=== PATIENT | male | born 1995 | race Caucasian/White ===

== ENCOUNTER 2018-09-02 12:44 | Emergency (ER) | payer SELFPAY ==
[2018-09-02 12:45] VITALS: BP 122/90; BP 122/99; PULSE 107; PULSE 111; RESP 17; RESP 19; TEMP 36.7; O2SAT 100; O2SAT 98; BMI 28.6
--- NOTE | 2018-09-02 12:56 | ED.DCSUM_ITS ---
- ER Visit Summary Date of Service: 09/02/18 Chief Complaint: Seizure History of Present Illness: The patient is a 23 M presents to the emergency department after a seizure. The patient has a history of seizure disorder. He is supposed to be on Depakote. He is been noncompliant with medication for over a year. Today, he had a witnessed seizure. He was postictal. He states now, he feels like he is back to baseline. He denies any fevers or chills. He denies any head injury. He is otherwise been in his normal state of health. Physical Examination: Vital signs reviewed General: Well-nourished, well-developed Head: Normocephalic, atraumatic Eyes: Pupils equal and reactive, extraocular muscles intact Neck, supple, no lymphadenopathy Heart: Regular rate and rhythm Respiratory: No distress, clear bilaterally Abdomen: Soft, nontender, nondistended, no peritoneal signs Back: Nontender Extremities: Nontender, no edema, no cords Skin: Normal color no rash Neuro: Alert and oriented, no focal or lateralizing deficits Test Results: [] Emergency Department Course and Treatment: The patient presents after witnessed seizure. He has not been compliant with Depakote therapy. On arrival, he is awake and alert. He is not encephalopathic. Is not meningitic. IV was established. The patient was loaded with Depakote at 17 mg/kg. He was observed. He had no further seizure activity. The patient's insurance has lapsed. I did have social work see him to get him a referral to get back on his Medicaid. I am going to refill his Depakote. At this time, I do feel that he safe for outpatient therapy. Treatment Plan: [] Disposition: Discharge Impression: 1. Breakthrough seizure This note was generated with [employer] dictation software. It may contain incorrect words, spelling, and punctuation that were not noted in review of the chart prior to signing ED Disposition - Plan for ED Patient: Instructions: ED Seizure Recurrent Prescriptions: Divalproex Sodium [Depakote] 500 mg PO BID #60 tablet. Referrals: Yamilet Manriquez [NON-STAFF] -
--- NOTE | 2018-09-02 13:05 | PCA ---
PRINTED OLD EKG
[2018-09-02 13:20] LABS: Absolute Lymphocyte Count 2.16 X10^3/ul (0.83-4.51); Absolute Neutrophil Count 5.7 X10^3/uL (2.0-7.7); Basophil# 0.04 X10^3/uL; Basophil% 0.5 % (0-1); Eosinophil# 0.19 X10^3/uL; Eosinophils% 2.2 % (0-5); Hemoglobin 13.9 g/dl (13.0-16.5); Lymphocyte # 2.16 X10^3/ul (4.0); Lymphocyte % 24.5 % (19-41); Mean Corp Hgb Conc 33.9 g/gl (32-36); Mean Corpuscular Hgb 29.4 pg (27.0-32.0); Mean Corpuscular Volume 86.7 fL (80-94); Mean Platelet Vol. 8.2 fl (6.2-12.0); Monocyte# 0.65 X10^3/uL; Monocyte% 7.4 % (0-10); Neutrophil # 5.73 X10^3/uL (2.7-7.7); Neutrophil % 64.7 % (47-70); Platelet Count 297 K/mm3 (150-450); RBC Distribution Width CV 13.4 % (11.6-14.6); RBC Distribution Width SD 42.9 fl (35.1-43.9); Red Blood Count 4.73 M/mm3 (4.6-6.2); White Blood Count 8.8 K/mm3 (4.4-11.0)
[2018-09-02 13:21] LABS: POSITIVE COUNT NO; POSITIVE DIFFERENTIAL NO; POSITIVE MORPHOLOGY NO
[2018-09-02 13:26] LABS: ALB/GLOB Ratio 1.1 RATIO (0.9-2.4); AST(SGOT) 31 U/L (15-37); Alanine Aminotransfer ALT/SGPT 44 U/L (16-61); Albumin, Serum 3.9 g/dL (3.2-5.0); Alkaline Phosphatase 98 U/L (45-117); Anion Gap 7 (5-15); BUN 13 mg/dL (7-18); BUN/Creat Ratio 11.2 RATIO (10-20); Calcium,Total 8.8 mg/dL (8.5-10.1); Chloride 107 mmol/L (98-107); Creatinine, Serum 1.16 mg/dL (0.70-1.30); EST Glomerular Filtration Rate 81 mL/min (>60); Est Glom Filt Rate - Afr Amer 98 mL/min (>60); Estimated Creatinine Clearance 100.51 ml/min; Globulin 3.7 g/dL (2.2-4.2); Glucose 82 mg/dL (74-106); Potassium 4.8 mmol/L (3.5-5.1); Protein, Total 7.6 g/dL (6.4-8.2); Sodium Level 138 mmol/L (136-145)
--- NOTE | 2018-09-02 14:20 | CM.ED ---
SOCIAL WORK NOTE REFERRED BY DR. RODAS FOR ASSISTANCE WITH PRESCRIPTIONS. PATIENT IS SELF PAY. MET WITH PATIENT AND PATIENT'S MOTHER AT BEDSIDE. INTRODUCED ROLE AND REASON FOR REFERRAL. DISCUSSED MEDICAID PROCESS AND PROVIDED PATIENT WITH CONTACT INFORMATION FOR MEDICAID SHARED SERVICES. EDUCATION PROVIDED ON PEOPLE TO PEOPLE FOR RX ASSISTANCE. PATIENT GIVEN CONTACT NUMBER AND ADRESS FOR PEOPLE TO PEOPLE. PATIENT DENIES ANY FURTHER ISSUES OR NEEDS. UPDATED DR. RODAS ON THE ABOVE. MARCIE LORENZ, NITRO MAN, CENTRIFUGE SEPARATOR TENDER.
[2018-09-02 14:47] VITALS: BP 126/76; PULSE 91; RESP 17; O2SAT 96
[2018-09-02] MEDS: Ibuprofen 600 MG Tablet PO (14:55)
[2018-09-02 14:58] VITALS: BP 129/68; PULSE 87; RESP 20; O2SAT 99
== END 2018-09-02 15:19 | disposition home or self-care (01) ==
PROVIDERS: Emergency Provider Emergency Medicine
DX: R56.9 Unspecified convulsions (principal); Z91.14 Patient's other noncompliance with medication regimen
CPT/HCPCS: 80053; 85025; 96365; 99285; J7030

== ENCOUNTER 2019-01-25 14:12 | Emergency (ER) | payer SELFPAY ==
[2019-01-25 14:14] VITALS: BP 116/75; PULSE 117; RESP 16; TEMP 36.8; O2SAT 96; BMI 29.1
--- NOTE | 2019-01-25 14:28 | CT_ITS ---
STUDY: CT BRAIN WITHOUT CONTRAST REASON FOR EXAM: Male, 23 years old. Head injury due to a seizure. RADIATION DOSAGE (If Supplied By Facility): CTDIvol = ( 44.99 ) mGy, DLP = ( 779.24 ) mGycm TECHNIQUE: Transaxial CT imaging of the brain was performed without administration of intravenous contrast material. Individualized dose optimization techniques were used for this CT. COMPARISON: Comparison is made with prior study dated April 22, 2016. FINDINGS: Normal soft tissue structures. Normal calvarium. Normal size ventricles and extra-axial spaces for the patient's age. Normal white matter tracts of the cerebral hemispheres. Normal basal ganglia and thalami. Normal brainstem. Normal cerebellum. There is no intracranial hemorrhage. There are no findings of an acute ischemic infarction. Normal visualized paranasal sinuses. CT/Brain/Head without Contrast IMPRESSION: Normal unenhanced CT scan of the brain. Electronically Signed: Jose Carlos Melo, at 15:24 EDT , Service support ,
--- NOTE | 2019-01-25 14:28 | CT_ITS ---
STUDY: CT CERVICAL SPINE WITHOUT CONTRAST REASON FOR EXAM: Male, 23 years old. Injury to the back of the skull due to seizure. RADIATION DOSAGE (If Supplied By Facility): CTDIvol = ( 23.87 ) mGy, DLP = ( 451.51 ) mGycm TECHNIQUE: High resolution transaxial imaging was performed without contrast material. Sagittal and coronal images were reconstructed. Individualized dose optimization techniques were used for this CT. COMPARISON: None FINDINGS: Small benign-appearing cervical lymph nodes. Normal craniovertebral junction. Normal anterior atlantoaxial articulation. Normal odontoid process. There is straightening of the normal cervical lordosis. Normal vertebral bodies and posterior osseous elements. C2-3: Normal endplates. Normal disc height and morphology. Normal central canal and intervertebral neuroforamina. C3-4: Normal endplates. Normal disc height and morphology. Normal central canal and intervertebral neuroforamina. C4-5: Normal endplates. Normal disc height and morphology. Normal central canal and intervertebral neuroforamina. C5-6: Normal endplates. Normal disc height and morphology. Normal central canal and intervertebral neuroforamina. C6-7: Normal endplates. Normal disc height and morphology. Normal central canal and intervertebral neuroforamina. C7-T1: Normal endplates. Normal disc height and morphology. Normal central canal and intervertebral neuroforamina. Normal visualized soft tissue structures. CT/Spine Cervical without Contras IMPRESSION: Normal unenhanced CT examination of the cervical spine. Electronically Signed: Jose Carlos Melo, at 15:23 EDT , Service support ,
--- NOTE | 2019-01-25 15:17 | ED.VISSUMM ---
- ER Visit Summary Date of Service: 01/25/19 Chief Complaint: Seizure History of Present Illness: The patient is a 23 M who presents the emergency department after reported seizure. Patient has an established history of noncompliance patient states he has a known history of epilepsy and is supposed to be taking Depakote. However he states due to insurance reasons he cannot afford it has not been taking it. He cannot recall the last time he had a seizure. However the last time he was brought to the emergency department here for seizure was in August of this year. At that time case management was contacted to help him get set up with Medicaid. Does not follow through with the necessary work to obtain this insurance. Patient notes pain in the left side of his neck following the reported fall during the seizure. He denies any loss of bowel or bladder control. Denies any tongue injury. He states he feels somewhat out of it but is improving. He does not remember the incident at work but does remember being at work. The next thing he remembers is waking up in the ambulance Physical Examination: Afebrile vital signs are stable Gen: Well-nourished well-developed Head: Normocephalic atraumatic Eyes: Perrl EOMI ENT: TMs clear no rhinorrhea moist mucous membranes Neck: Supple no lymphadenopathy no JVD she has tenderness palpation over the left side of his neck and in the midline. CVS: Regular rate rhythm no murmurs normal S1-S2 Respiratory: No distress clear to auscultation bilaterally chest nontender Abdomen: Soft nontender nondistended normal bowel sounds no masses Back: Nontender Extremity: Nontender no edema Skin: Normal color no rash Neuro: alert orientated ?3 CN II-XII intact normal strength sensation reflexes gait cerebellar Psych: Normal affect normal mood Test Results: CT of the brain and cervical spine were obtained. Emergency Department Course and Treatment: She was loaded with 17 mix per cake of Depacon. I will wrote for him to have his Depakote for the next 30 days. He was encouraged to follow-up with neurology. Impression: 1. Epileptic seizure This note was generated with Robert Applebaum MD dictation software. It may contain incorrect words, spelling, and punctuation that were not noted in review of the chart prior to signing ED Disposition - Plan for ED Patient: Disposition: Home or Assisted Living Instructions: SEIZURE, Recurrent [Adult] Prescriptions: Divalproex Sodium [Depakote] 500 mg PO BID #60 tablet.dr Prescription Printed Referrals: Desean Mcneal MD [STAFF PHYSICIAN] - (Also arrange follow-up with his neurologist)
--- NOTE | 2019-01-25 16:15 | CM.ED ---
Social Work Consult: Resources Informant: Dr. Squires Chief Complaint: Unable to obtain medications for seizures. Living situation: lives with fatherAndry Employment/Education: Works for [employer]. Graduated with a high school diploma. Reporting to be unable to read or write without assistance. Stating to have had an IEP in high school. Transportation: Does not drive. Depends on neighbor and cab services for transportation. Supports/Resources: Stating to have friends for support. Does not identify father as a support person stating he works. Abuse Issues: Patient denies any abuse history Substance Abuse: Patient denies. Mental Health: Patient denies any mental health treatment or history of. Risk to Self/Others: Denies SI or HI. Assessment: Met with patient in room. This social insurance administrator introduced self as well as social insurance administrator role. Patient agreeable to meeting with this social insurance administrator. This social insurance administrator inquiring about insurance for patient. Patient stating I think I have it set up through work. Patient unable to provide insurance card. Patient stating that the insurance payment is taken out of patient paycheck. Patient unsure what insurance it might be. Registration did attempt to contact patient employer and is unable to confirm patient insurance. This social insurance administrator inquiring about medicaid for patient in the past. Patient stating to believe that patient had medicaid at one point but not sure. Patient declining for this social insurance administrator to contact patient father/friend to see if patient would have support for filling out paperwork and establishing insurance due to patient being unable to read and write on own. Patient able to make own decisions as determined by medical team. Patient denies having any legal guardian. Patient aware of the time of year, place and person. Patient unsure of the month due to I don't follow that much. Patient states no transportation concerns. Patient stating to be concerned that patient will have a job as patient was told if patient would have another seizure that work that patient would be terminated and placed on disability. Patient does not respond emotionally to this comment and shrugs shoulders. Patient continued to decline this social insurance administrator contacting patient family/friends for possible support. Active listening provided. Encouraged patient to work with patient family or friends on establishing patient insurance. Patient voicing skip. Kathrine Troncoso MSW, MALIKA
[2019-01-25 17:27] VITALS: BP 108/77; PULSE 62; RESP 15; O2SAT 98
== END 2019-01-25 17:29 | disposition home or self-care (01) ==
PROVIDERS: Emergency Provider Emergency Medicine
DX: G40.909 Epilepsy, unspecified, not intractable, without status epilepticus (principal); Z91.19 Patient's noncompliance with other medical treatment and regimen; S16.1XXA Strain of muscle, fascia and tendon at neck level, initial encounter; W19.XXXA Unspecified fall, initial encounter; Y93.9 Activity, unspecified; Y92.9 Unspecified place or not applicable; Y99.9 Unspecified external cause status; Z79.899 Other long term (current) drug therapy
CPT/HCPCS: 70450; 72125; 96365; 96366; 99285; J7050; A4216

== ENCOUNTER 2021-08-09 08:55 | Emergency (ER) | payer OTHER, SELFPAY ==
[2021-08-09 08:58] VITALS: BP 128/83; PULSE 102; RESP 16; TEMP 36.2; O2SAT 99; BMI 29.5
[2021-08-09 09:57] LABS: Absolute Lymphocyte Count 1.44 X10^3/uL (0.83-4.51); Absolute Neutrophil Count 14.7 X10^3/uL (2.0-7.7); Basophil# 0.08 X10^3/uL; Basophil% 0.5 % (0-1); Eosinophil# 0.05 X10^3/uL; Eosinophils% 0.3 % (0-5); Hematocrit 40.5 % (40-54); Hemoglobin 13.9 g/dL (13.0-16.5); Lymphocyte # 1.44 X10^3/ul (0.83-4.51); Lymphocyte % 8.4 % (19-41); Mean Corp Hgb Conc 34.3 g/dL (32-36); Mean Corpuscular Hgb 29.6 pg (27.0-32.0); Mean Corpuscular Volume 86.2 fL (80-94); Mean Platelet Vol. 8.3 fl (6.2-12.0); Monocyte# 0.69 X10^3/uL; NRBC Flagged by Analyzer 0 % (0-5); Neutrophil % 85.6 % (47-70); Platelet Count 425 K/mm3 (150-450); RBC Distribution Width CV 13.2 % (11.6-14.6); RBC Distribution Width SD 41.2 fl (35.1-43.9); White Blood Count 17.2 K/mm3 (4.4-11.0)
[2021-08-09 10:27] LABS: Anion Gap 10 (5-15); BUN 14 mg/dL (7-18); Calcium,Total 9.3 mg/dL (8.5-10.1); Chloride 103 mmol/L (98-107); Creatinine, Serum 1.17 mg/dL (0.70-1.30); EST Glomerular Filtration Rate 79 mL/min (>60); Est Glom Filt Rate - Afr Amer 95 mL/min (>60); Glucose 117 mg/dL (74-106); Potassium 4.9 mmol/L (3.5-5.1); Sodium Level 134 mmol/L (136-145)
[2021-08-09] MEDS: levETIRAcetam 500 MG Tablet PO (11:00)
[2021-08-09] MEDS: Acetaminophen 500 MG Tablet PO (11:00)
[2021-08-09 11:01] VITALS: BP 126/85; PULSE 95; RESP 20; O2SAT 100
--- NOTE | 2021-08-09 12:00 | EDS_ITS ---
HPI History of Present Illness Chief Complaint: Seizure Narrative Narrative: 26-year-old male with history of seizure disorder. He states he takes Keppra. He supposed to take 500 twice daily but does not always. He states that if he takes 2 doses he typically becomes tired. He waits on the second dose until after he gets home from work. Today at work he had a breakthrough seizure. He did not bite his tongue. He did not lose bladder or bowel. Patient had no head trauma. Bystanders helped him he decided aside so he did not vomit or choke. Patient back to baseline currently. He has a very mild headache. No visual complaints. PFSH PFSH Home Medications levetiracetam 500 mg PO BID #60 tablet 04/22/16 [Rx Last Taken Unknown] Allergy/AdvReac Type Severity Reaction Status Date / Time Penicillins [PCN] Allergy Unknown Verified 08/09/21 08:56 Social History Smoking Status: Never smoker ROS ROS ED Constitutional Constitutional ED: Denies chills, fever(s) or sweats Eyes Eyes: Denies blurry vision or change in vision ENT ENT ED: Denies ear pain or sore throat Cardiovascular Cardiovascular: Denies chest pain, palpitations or racing heartbeat Respiratory/Chest Respiratory/Chest: Denies cough, dyspnea or sputum Gastrointestinal Gastrointestinal: Denies abdominal pain, constipation, diarrhea, nausea or vomiting Genitourinary Genitourinary ED: Denies dysuria, hematuria or urinary frequency Musculoskeletal Musculoskeletal: Denies arthralgias, myalgias or neck pain Integumentary Denies abscess, Abrasions or rash Neurologic Neurologic: Reports headache(s) and other Details: Breakthrough seizure Psychiatric Psychiatric: Denies anxiety, depression, suicidal ideation or suicidal thoughts Endocrine Endocrinology: Denies polydipsia or polyuria EXAM Physical Exam Const Vital Signs: 08/09/21 08:58 08/09/21 11:01 Temperature 97.2 F L Temperature Source Oral Pulse Rate 102 H 95 Respiratory Rate 16 20 H Blood Pressure 128/83 H 126/85 H Blood Pressure Mean 98 98 Pulse Ox 99 100 Oxygen Delivery Method Room Air Room Air Positive well nourished General Appearance ED: NAD; Negative for pallor HEENT Reports normocephalic, head/scalp atraumatic and moist mucous membranes Eyes PERRL and EOMs intact bilaterally Neck no lymphadenopathy and supple Chest Wall inspection of chest normal and palpation of chest normal Resp normal respiratory effort and clear to auscultation bilaterally Auscultation: Negative for rales, rhonchi or wheezes Cardio regular rate and regular rhythm GI normal to inspection, nondistended, normoactive bowel sounds and non-distended Auscultation: normoactive bowel sounds Palpation: soft Narrative: Deferred Extremity normal to inspection General Extremety ED: Yes edema and tenderness General Extremity: edema Neuro oriented x3 and CN's II-XII intact bilaterally Sensorium / Orientation: alert Motor Exam: strength 5/5 throughout Psych mental status grossly normal Attitude: No agitated Skin no rashes or lesions noted and no wounds General Skin Exam: Negative for jaundice or pallor MDM MDM MDM Narrative Medical decision making narrative: Patient presenting with breakthrough seizure. He is alert and oriented. He states he was initially postictal but feels well now. Is a mild headache. He is given Tylenol for this. I obtained lab work and patient has a leukocytosis of 17.2 which is likely due to his seizure. Hemoglobin and hematocrit are normal. Renal function and electrolytes are also within normal limits. Patient was given a oral Keppra here. Has had no breakthrough seizures. He is to monitor for a couple of hours. He request a work note for today and tomorrow. He has a specialist that he sees is 4 hours away. He states he typically calls and has televisits. In the summer he gets his prescriptions. Patient will call today. Impression: 1. Seizure Lab Data Attestation: I reviewed the patient's lab results. Labs: Laboratory Results - last 24 hr 08/09/21 08/09/21 09:50 09:50 WBC 17.2 H RBC 4.70 Hgb 13.9 Hct 40.5 MCV 86.2 MCH 29.6 MCHC 34.3 RDW Std Deviation 41.2 RDW Coeff of Jose 13.2 Plt Count 425 MPV 8.3 Immature Gran % (Auto) 1.200 H Neut % (Auto) 85.6 H Lymph % (Auto) 8.4 L [place] % (Auto) 4.0 Eos % (Auto) 0.3 Baso % (Auto) 0.5 Absolute Neuts (auto) 14.7 H Absolute Lymphs (auto) 1.44 Nucleated RBC % 0 Sodium 134 L Potassium 4.9 Chloride 103 Carbon Dioxide 21.0 Anion Gap 10 BUN 14 Creatinine 1.17 Estim Creat Clear Calc 94.00 Est GFR (MDRD) Af Amer 95 Est GFR (MDRD) Non-Af 79 BUN/Creatinine Ratio 12.0 Glucose 117 H Calcium 9.3 Discharge Plan Triage Chief Complaint: Seizure ED Provider: Benjamín Odonnell Dx/Rx/DC Orders Instructions: ED Seizure, Recurrent (Adult) Prescriptions: No Action levetiracetam 500 MG tablet 500 mg PO BID Qty: 60 RF: 0 Primary Care Provider: Care Physician,No Primary Referrals: Care Physician,No Primary [Primary Care Provider] - Disposition Disposition: Home, Self Care
[2021-08-09 12:01] VITALS: BP 121/80; PULSE 92
--- NOTE | 2021-08-09 12:01 | EKG12_ITS ---
Test Reason : CP Blood Pressure : / mmHG Vent. Rate : 093 BPM Atrial Rate : 093 BPM P-R Int : 182 ms QRS Dur : 116 ms QT Int : 348 ms P-R-T Axes : 048 053 067 degrees QTc Int : 432 ms Normal sinus rhythm Normal ECG Confirmed by SYLVIA PALM MD ([id number]), photo editor HAILEE MERA ([id number]) on 08/13/2021 10:38:31 AM Referred By: JOVAN Confirmed By:SYLVIA PALM MD
--- NOTE | 2021-08-09 12:05 | CM.ED ---
SW Note Referral Source: Case Find Referral Reason: No Primary Care Physician (PCP) SW reviewed chart and noted that patient has no PCP. SW provided patient with list of [facility] and [facility] Physician List for reference. SW also provided patient with handout ?Where to go When?. SW noted patient has no insurance so SW provided patient with financial assistance handout. No other issues or concerns voiced at this time. SW remains available for any additional needs. Plan: Provided patient with PCP information Magdalena SAHNI
[2021-08-13 16:01] LABS: KEPPRA (LEVETIRACETAM) <1.0 ug/mL (10.0-40.0)
== END 2021-08-09 12:03 | disposition home or self-care (01) ==
PROVIDERS: Emergency Provider Student in an Organized Health Care Education/Training Program; Visit Provider Student in an Organized Health Care Education/Training Program
DX: G40.909 Epilepsy, unspecified, not intractable, without status epilepticus (principal)
CPT/HCPCS: 80048; 80177; 85025; 93005; 99285

== ENCOUNTER 2022-04-26 09:17 | Emergency (ER) | payer SELFPAY ==
[2022-04-26 09:18] VITALS: BP 131/77; PULSE 104; RESP 16; TEMP 36.8; O2SAT 96; BMI 31.1
--- NOTE | 2022-04-26 09:19 | CT_ITS ---
STUDY: CT BRAIN WITHOUT CONTRAST REASON FOR EXAM: Male, 26 years old. Injury and seizure RADIATION DOSAGE (If Supplied By Facility): CTDIvol = ( 44.99 ) mGy, DLP = ( 779.24 ) mGycm TECHNIQUE: Transaxial CT imaging of the brain was performed without administration of intravenous contrast material. Individualized dose optimization techniques were used for this CT. COMPARISON: No relevant priors. FINDINGS: Soft tissue scalp hematoma overlying the posterior right occipital bone. Normal calvarium. Normal size ventricles and extra-axial spaces for the patient''s age. Normal white matter tracts of the cerebral hemispheres. Normal basal ganglia and thalami. Normal brainstem. Normal cerebellum. There is no intracranial hemorrhage. There are no findings of an acute ischemic infarction. Normal visualized paranasal sinuses. CT/Brain/Head without Contrast IMPRESSION: Normal unenhanced CT scan of the brain. Small scalp hematoma overlying the posterior right occipital bone. Electronically Signed: Jose Carlos Melo MD at 10:03 EST ,
[2022-04-26] MEDS: 0.9% Normal Saline 1,000 ML 1000 ML IV (09:24)
[2022-04-26 09:40] LABS: Absolute Lymphocyte Count 1.79 X10^3/uL (0.83-4.51); Absolute Neutrophil Count 8.6 X10^3/uL (2.0-7.7); Basophil% 0.9 % (0-1); Eosinophil# 0.22 X10^3/uL; Eosinophils% 1.9 % (0-5); Hematocrit 41.1 % (40-54); Hemoglobin 13.6 g/dL (13.0-16.5); Lymphocyte # 1.79 X10^3/ul (0.83-4.51); Lymphocyte % 15.8 % (19-41); Mean Corp Hgb Conc 33.1 g/dL (32-36); Mean Corpuscular Hgb 29.2 pg (27.0-32.0); Mean Corpuscular Volume 88.2 fL (80-94); Mean Platelet Vol. 8.2 fl (6.2-12.0); Monocyte% 5.3 % (0-10); NRBC Flagged by Analyzer 0 % (0-5); Neutrophil # 8.55 X10^3/uL (2.7-7.7); Neutrophil % 75.4 % (47-70); Platelet Count 441 K/mm3 (150-450); RBC Distribution Width CV 12.8 % (11.6-14.6); RBC Distribution Width SD 41.1 fl (35.1-43.9); Red Blood Count 4.66 M/mm3 (4.6-6.2); White Blood Count 11.3 K/mm3 (4.4-11.0)
[2022-04-26 09:52] LABS: AST(SGOT) 15 U/L (15-37); Alanine Aminotransfer ALT/SGPT 23 U/L (16-61); Albumin, Serum 3.9 g/dL (3.2-5.0); Alkaline Phosphatase 80 U/L (45-117); Anion Gap 11 (5-15); BUN 8 mg/dL (7-18); BUN/Creat Ratio 6.3 RATIO (10-20); Calcium,Total 9.2 mg/dL (8.5-10.1); Chloride 106 mmol/L (98-107); Creatinine, Serum 1.27 mg/dL (0.70-1.30); EST Glomerular Filtration Rate 71 mL/min (>60); Est Glom Filt Rate - Afr Amer 86 mL/min (>60); Estimated Creatinine Clearance 89.41 ml/min; Globulin 3.8 g/dL (2.2-4.2); Glucose 102 mg/dL (74-106); Potassium 3.7 mmol/L (3.5-5.1); Protein, Total 7.7 g/dL (6.4-8.2); Sodium Level 140 mmol/L (136-145)
[2022-04-26 09:54] LABS: Alcohol, Blood (Medical)-Serum < 3.0 mg/dL
[2022-04-26 10:06] LABS: Lactic Acid 5.7 mmol/L (0.4-1.9)
[2022-04-26 10:33] LABS: Amphetamine Urine VISTA NEGATIVE (<1000 ng/mL); Barbiturate Urine VISTA NEGATIVE (< 200 ng/mL); Benzodiazepine Urine VISTA NEGATIVE (< 200 ng/mL); Cocaine Urine VISTA NEGATIVE (< 300 ng/mL); Ecstacy Urine VISTA NEGATIVE (< 500 ng/mL); Methadone Urine VISTA NEGATIVE (< 300 ng/mL); PCP Urine VISTA NEGATIVE (< 25 ng/mL); THC Urine VISTA NEGATIVE (< 50 ng/mL); Vista UDS pH Range 6
--- NOTE | 2022-04-26 10:52 | EX.ED.DYSGE1 ---
HPI History of Present Illness Chief Complaint: Seizure Informant: patient and EMS Narrative Narrative: 26-year-old male was at work today when he was noted to be on the ground having a seizure. Reportedly he does have a seizure history. Chart biopsy shows that he takes Keppra. He however is not able to tell us any information at this time as he appears postictal. EMS notes that he must of hit his head on the ground as there is a occipital hematoma. No other signs of trauma. His prior ED visits are for seizure as well. Last visit in July of this year [facility] Medical History (Updated 04/26/22 @ 10:[address] Jose M Squires, DO) Seizure Home Medications levetiracetam 500 mg tablet 500 mg PO BID ##60 04/22/16 [Rx Last Taken Unknown] Allergy/AdvReac Type Severity Reaction Status Date / Time Penicillins [PCN] Allergy Unknown Verified 08/09/21 08:56 Social History Smoking Status: Never smoker ROS ROS ED Review of Systems ROS Unobtainable: due to mental status EXAM Physical Exam Narrative Exam Narrative: Patient appears postictal Const Vital Signs: 04/26/22 09:18 Temperature 98.2 F Temperature Source Temporal Pulse Rate 104 H Respiratory Rate 16 Blood Pressure 131/77 H Blood Pressure Mean 95 Pulse Ox 96 Oxygen Delivery Method Room Air Positive well nourished and well developed General Appearance ED: well developed HEENT Reports normocephalic, head/scalp atraumatic and moist mucous membranes Eyes PERRL and EOMs intact bilaterally Neck no lymphadenopathy, supple and no JVD Resp normal respiratory effort and clear to auscultation bilaterally Cardio regular rate, regular rhythm and no murmurs GI normal to inspection, nondistended, normoactive bowel sounds and non-tender Palpation: soft Back/Spine no CVA tenderness and normal ROM Extremity normal to inspection General Extremety ED: Negative for edema General Extremity: Negative for edema Neuro CN's II-XII intact bilaterally Neuro Narrative: Patient is not talking. He is texting on his phone and humming. He is moving all 4 extremities Sensorium / Orientation: alert and orientation impaired Motor Exam: strength 5/5 throughout Psych Mood & Affect: Negative for depressed or tearful Skin no rashes or lesions noted and no wounds MDM MDM MDM Narrative Medical decision making narrative: To the head trauma CT it was obtained which was negative. Basic blood work shows a white count 11.3. Normal gap normal CO2. Lactic acid is elevated at 5.7. Toxicology work-up is negative. Patient sensorium improved and he is achieved neurologic baseline. He is now eating and drinking. He does not recall the events. He states he has not missed any doses of his Keppra and is still on it. At this point patient will be discharged instructions to follow-up with his neurologist Lab Data Attestation: I reviewed the patient's lab results. Labs: Laboratory Results - last 24 hr 04/26/22 04/26/22 04/26/22 09:25 09:25 09:25 WBC 11.3 H RBC 4.66 Hgb 13.6 Hct 41.1 MCV 88.2 MCH 29.2 MCHC 33.1 RDW Std Deviation 41.1 RDW Coeff of Jose 12.8 Plt Count 441 MPV 8.2 Immature Gran % (Auto) 0.700 Neut % (Auto) 75.4 H Lymph % (Auto) 15.8 L [place] % (Auto) 5.3 Eos % (Auto) 1.9 Baso % (Auto) 0.9 Absolute Neuts (auto) 8.6 H Absolute Lymphs (auto) 1.79 Nucleated RBC % 0 Sodium 140 Potassium 3.7 Chloride 106 Carbon Dioxide 23.0 Anion Gap 11 BUN 8 Creatinine 1.27 Estim Creat Clear Calc 89.41 Est GFR (MDRD) Af Amer 86 Est GFR (MDRD) Non-Af 71 BUN/Creatinine Ratio 6.3 L Glucose 102 Lactic Acid Calcium 9.2 Total Bilirubin 0.80 AST 15 ALT 23 Alkaline Phosphatase 80 Total Protein 7.7 Albumin 3.9 Globulin 3.8 Albumin/Globulin Ratio 1.0 Urine Opiates Screen Urine Methadone Screen Ur Barbiturates Screen Ur Phencyclidine Scrn Ur Amphetamines Screen MDMA (Ecstasy) Screen U Benzodiazepines Scrn Urine Cocaine Screen U Cannabinoids Screen Ur Drug Screen Comment Ethyl Alcohol < 3.0 04/26/22 04/26/22 09:25 09:30 WBC RBC Hgb Hct MCV MCH MCHC RDW Std Deviation RDW Coeff of Jose Plt Count MPV Immature Gran % (Auto) Neut % (Auto) Lymph % (Auto) [place] % (Auto) Eos % (Auto) Baso % (Auto) Absolute Neuts (auto) Absolute Lymphs (auto) Nucleated RBC % Sodium Potassium Chloride Carbon Dioxide Anion Gap BUN Creatinine Estim Creat Clear Calc Est GFR (MDRD) Af Amer Est GFR (MDRD) Non-Af BUN/Creatinine Ratio Glucose Lactic Acid 5.7 H* Calcium Total Bilirubin AST ALT Alkaline Phosphatase Total Protein Albumin Globulin Albumin/Globulin Ratio Urine Opiates Screen NEGATIVE Urine Methadone Screen NEGATIVE Ur Barbiturates Screen NEGATIVE Ur Phencyclidine Scrn NEGATIVE Ur Amphetamines Screen NEGATIVE MDMA (Ecstasy) Screen NEGATIVE U Benzodiazepines Scrn NEGATIVE Urine Cocaine Screen NEGATIVE U Cannabinoids Screen NEGATIVE Ur Drug Screen Comment Ethyl Alcohol Radiography Diagnostic Testing: Clinical Impression(s) from Imaging Studies Brain CT 04/26/22 09:19 IMPRESSION: Normal unenhanced CT scan of the brain. Small scalp hematoma overlying the posterior right occipital bone. Electronically Signed: Jose Carlos Melo MD at 10:03 EST , Discharge Plan Triage Chief Complaint: Seizure ED Provider: Jose M Squires Dx/Rx/DC Orders Clinical Impression: Epileptic seizure, Traumatic hematoma of scalp Prescriptions: No Action levetiracetam 500 MG tablet 500 mg PO BID Qty: 60 0RF Primary Care Provider: Care Physician,No Primary Referrals: Care Physician,No Primary [Primary Care Provider] - Activity Restrictions/Additional Instructions: Please follow-up with your neurologist Disposition Disposition: Home, Self Care
[2022-04-26] MEDS: Acetaminophen 500 MG Tablet 1000 MG PO (11:30)
[2022-04-26 11:33] VITALS: BP 124/69; PULSE 73; RESP 15; O2SAT 98
[2022-04-26 13:31] LABS: Reflex Lactate? Y
== END 2022-04-26 11:34 | disposition home or self-care (01) ==
PROVIDERS: Emergency Provider Emergency Medicine; Visit Provider Emergency Medicine
DX: G40.909 Epilepsy, unspecified, not intractable, without status epilepticus (principal); S06.330A Contusion and laceration of cerebrum, unspecified, without loss of consciousness, initial encounter; W19.XXXA Unspecified fall, initial encounter
CPT/HCPCS: 70450; 80053; 80307; 82077; 83605; 85025; 96360; 96361; 99285; J7030; A4216